=== PATIENT | male | born 1945 | race Caucasian/White ===

== ENCOUNTER 2017-09-20 11:47 | Emergency (ER) | payer OTHER ==
[~2017-09-20 11:47] MED LIST: ASP81 PO; ATR10 PO; AZIT-9 PO; GUAI600T PO; LEVO50TA80 PO; METO200T32 PO; [UNRECOGNIZED DRUG - CODE] PO; [UNRECOGNIZED DRUG - CODE] PO; vitamins PO
--- NOTE | 2017-09-20 11:49 | ER Report ---
History and Physical Time Seen By MD: 11:48 HPI/ROS CHIEF COMPLAINT: Drill through left thumb HISTORY OF PRESENT ILLNESS: Patient is a 72-year-old male here status post drilling through his left thumb at approximately 1120 this morning while in his shop at home. Patient was drilling a piece of [place] when he slipped and the drill went through his finger. Patient's last tetanus vaccination was approximately 8 years ago. Patient denies numbness or tingling of the finger. Perfusion is intact distal to the injury site. REVIEW OF SYSTEMS: Skin: + Dorsal puncture and ventral puncture of the mid finger Neuro: NV exam is intact distal to wound site Allergies: Coded Allergies: No Known Drug Allergies (Unverified , 09/20/17) Home Meds Active Scripts Bacitracin 28.4 GM ointment (Bacitracin Ointment) 500 Unit/Gram Oint...g., 24.8 GM TP BID for 7 Days, GM Prov:CARRIE FAJARDO DO 09/20/17 Cephalexin 500 Mg Tab (KEFLEX 500 MG TAB) 500 Mg Tablet, 500 MG PO Q6H for 7 Days, #28 TAB Prov:CARRIE FAJARDO DO 09/20/17 Reported Medications Metformin Hcl (METFORMIN HCL) 1,000 Mg Tablet, 1 TAB PO QDAY, TAB 09/20/17 Metformin Hcl (METFORMIN HCL) 500 Mg Tablet, 1 TAB PO QDAY, TAB 09/20/17 Flaxseed Oil (Flax Seed) 1,030 Mg Capsule, 1030 MG PO DAILY 07/12/12 Aspirin (Childrens Chewable Aspirin) 81 Mg Chew, 81 MG PO QDAY 07/12/12 [vitamins] No Conflict Check, 1 TAB PO DAILY 07/12/12 Levothyroxine Sodium (Levothyroxine Sodium) 50 Mcg Tablet, 75 MCG PO DAILY 07/12/12 Metoprolol Succinate (Metoprolol Succinate) 200 Mg Tab.sr.24h, 200 MG PO HS 07/12/12 Atorvastatin (Lipitor) 10 Mg Tab, 10 MG PO QHS 07/12/12 Discontinued Reported Medications Guaifenesin (GUAIFENESIN) 600 Mg Tablet.er, 600 MG PO BID 07/14/12 Azithromycin (Azithromycin) 250 Mg Tablet, 250 MG PO QDAY, #3 07/14/12 Cefuroxime Axetil (CEFTIN (OR EQUIV)) 250 Mg/5 Ml Susp, 500 MG PO BID Take for 5 days. 07/14/12 Hx Smoking: Yes Hx Substance Use Disorder: No Hx Alcohol Use: Yes Constitutional Vital Sign - Last 24 Hours 09/20/17 09/20/17 09/20/17 09/20/17 11:50 11:50 12:00 12:17 Temp 97.6 Pulse 51 50 48 Resp 20 B/P (MAP) 173/76 173/76 (108) 157/80 (105) Pulse Ox 94 91 O2 Delivery Room Air 09/20/17 12:30 Pulse 46 B/P (MAP) 148/70 (96) Physical Exam General Appearance: The patient is alert, has no immediate need for airway protection and no current signs of toxicity. NAD Extremities have full range of motion and are non tender. Skin: + Dorsal puncture and ventral puncture of the mid finger Neuro: NV exam is intact distal to wound site DIFFERENTIAL DIAGNOSIS: After history and physical exam differential diagnosis was considered for open fracture, closed fracture, infection, Medical Decision Making EKG/Imaging EKG Interpretation 12 lead EKG: Normal sinus rhythm rate 77 and acute signs of ischemia or T-wave abnormalities Rhythm: normal sinus rhythm [place]: normal QRS: normal ST segments: normal Monitor Interpretation: Normal Sinus Rhythm Imaging INDICATION: drill through thumb @ 1120. DATE: 09/20/2017 1:00 PM. TECHNIQUE: FINGER LEFT THUMB COMPARISON: None FINDINGS: No radiopaque foreign body. No conspicuous fracture. IMPRESSION: No fracture identified. ED Course/Re-evaluation ED Course Patient is a 72-year-old male here status post drilling his finger accidentally threw the thumb with a drill bit at approximately 1120 this morning in his workshop. Neurovascular exam is intact. X-ray imaging showed no acute fracture or foreign bodies. The wound was cleaned and soaked and the patient was placed on Keflex x 7 days for prophylaxis. Bacitracin was ordered for topical antimicrobial coverage. Patient was advised to return promptly if he develops any worsening swelling, worsening pain, rashes, surrounding redness, drainage. EKG was ordered because patient was found to be bradycardic and showed no signs of ischemia. Decision to Disposition Date: Sep 20, 2017 Decision to Disposition Time: 13:23 Depart Departure Latest Vital Signs Vital Signs Date Time Temp Pulse Resp B/P (MAP) Pulse Ox O2 Delivery O2 Flow Rate FiO2 09/20/17 12:30 46 148/70 (96) 09/20/17 12:17 91 09/20/17 11:50 97.6 20 Room Air Impression: Primary Impression: Puncture wound Condition: Improved Disposition: HOME OR SELF-CARE Referrals: JEFFREY LARKIN (PCP) New Scripts Bacitracin 28.4 GM ointment (Bacitracin Ointment) 500 Unit/Gram Oint...g. 24.8 GM TP BID for 7 Days, GM Prov: CARRIE FAJARDO DO 09/20/17 Cephalexin 500 Mg Tab (KEFLEX 500 MG TAB) 500 Mg Tablet 500 MG PO Q6H for 7 Days, #28 TAB Prov: CARRIE FAJARDO DO 09/20/17 Patient Instructions: Puncture Wound (ED) Additional Instructions: Please take one tablet of Keflex 4 times a day for 7 days. Please dress the wound with Bacitracin antibiotic ointment. Please return promptly if you develop increased swelling, rashes, drainage from the site. Please follow-up with your family doctor in one week. CARRIE FAJARDO DO Sep 20, 2017 11:49
[2017-09-20] MEDS ORDERED: METF-411 PO (11:56)
[2017-09-20] MEDS ORDERED: METF-421 PO (11:56)
[2017-09-20] MEDS ORDERED: DIPHTH/TETANUS/ACEL. PERTUSSIS IM ONLY ONE (12:00)
--- NOTE | 2017-09-20 12:39 | EKG ---
FACILITY: [facility] PATIENT NAME: PANCHITO LIMA : [id number] MR: [id number] V: [id number] EXAM DATE: ORDERING PHYSICIAN: CARRIE FAJARDO TECHNOLOGIST: Test Reason : Blood Pressure : / mmHG Vent. Rate : 048 BPM Atrial Rate : 048 BPM P-R Int : 148 ms QRS Dur : 084 ms QT Int : 482 ms P-R-T Axes : 052 -09 078 degrees QTc Int : 430 ms Marked sinus bradycardia with premature atrial complexes Cannot rule out Anterior infarct (cited on or before 02-JUN-2015) Abnormal ECG When compared with ECG of 02-JUN-2015 08:41, premature atrial complexes are now present Questionable change in initial forces of Anterior leads Confirmed by GARY OLIVAS ([id number]) on 09/21/2017 6:34:15 AM Referred By: Confirmed By:GARY OLIVAS
--- NOTE | 2017-09-20 13:06 | RADIOLOGY IMAGING REPORT ---
FACILITY: [facility] - [place] PATIENT NAME: Jd Ellis : 1945 MR: [id number] V: [id number] EXAM DATE: ORDERING PHYSICIAN: CARRIE FAJARDO TECHNOLOGIST: Location: [facility] [place] Patient: Jd Ellis : 1945 Visit/Account:[id number] Date of Sevice: 09/20/2017 INDICATION: drill through thumb @ 1120. DATE: 09/20/2017 1:00 PM. TECHNIQUE: FINGER LEFT THUMB COMPARISON: None FINDINGS: No radiopaque foreign body. No conspicuous fracture. IMPRESSION: No fracture identified. Report Dictated By: Siri Huffman MD at 09/20/2017 1:00 PM Report E-Signed By: Siri Huffman MD at 09/20/2017 1:02 PM WSN:[id number]
[2017-09-20] MEDS ORDERED: CEPH500T7 PO (13:18)
[2017-09-20] MEDS ORDERED: BACI28.415 TP (13:18)
[2017-09-20 13:38] VITALS: BP 151/75
== END 2017-09-20 13:38 | disposition home or self-care (01) ==
LOC: ER 11:52
DX: S61.032A Puncture wound without foreign body of left thumb without damage to nail, initial encounter (principal); R00.1 Bradycardia, unspecified
CPT/HCPCS: 90471; 90715; 93005; 99284